=== PATIENT | female | born 2000 | race Two or more races ===

== ENCOUNTER → 2024-12-15 | Outpatient (REF) | payer OTHER ==
[2024-12-15 19:43] LABS: GC DNA AMPLIFICATION NEGATIVE (NEGATIVE)
[2024-12-15 20:03] LABS: Trichomonas vaginalis (AMP) NOT DETECTED (NEGATIVE)
== END ==
LOC: M SFHCWAGY 15:10
PROVIDERS: ATTEND Obstetrics & Gynecology
DX: Z11.3 Encounter for screening for infections with a predominantly sexual mode of transmission (principal); Z12.4 Encounter for screening for malignant neoplasm of cervix; Z01.419 Encounter for gynecological examination (general) (routine) without abnormal findings; Z77.9 Other contact with and (suspected) exposures hazardous to health

== ENCOUNTER → 2025-01-19 | Outpatient (CLI) | payer OTHER | LOC: M WHC 07:35 → EDUNIT# 08:00 | PROVIDERS: ATTEND Obstetrics & Gynecology | DX: N93.0 Postcoital and contact bleeding (principal); N94.10 Unspecified dyspareunia; N83.201 Unspecified ovarian cyst, right side ==